=== PATIENT | female | born 1990 | race African-American/Black ===

== ENCOUNTER 2018-06-27 09:24 | Emergency (ER) | payer BC ==
--- NOTE | 2018-06-27 10:05 | EDM.PDOC ---
ED HPI GENERAL MEDICAL PROBLEM - General Chief Complaint: General Stated Complaint: NECK PAIN Time Seen by Provider: 06/27/18 10:01 Source of Information: Reports: Patient History Limitations: Reports: No Limitations - History of Present Illness INITIAL COMMENTS - FREE TEXT/NARRATIVE: HISTORY AND PHYSICAL: History of present illness: Patient is a 27-year-old female presents to the ED today with concern of neck spasm and dizziness. Patient states she is concerned because she did have a vaginal delivery 3 weeks ago and was told she had severe anemia. Patient states that she is concerned that dizziness is due to this. She describes the pain in her neck as more to the right and as a "spasm". She denies any injury to the neck or prior injury. She states that she felt like she slept on her neck wrong and woke up with the muscle tightening. Patient denies any fever, chills, headache, change in vision, syncope or near syncope. Denies any chest pain, shortness of breath or cough. Denies any abdominal pain, nausea, vomiting, diarrhea, constipation or dysuria. Has not noted any blood in urine or stool. Patient has been eating and drinking appropriately. Patient denies any other history than as stated above. Review of systems: As per history of present illness and below otherwise all systems reviewed and negative. Past medical history: As per history of present illness and as reviewed below otherwise noncontributory. Surgical history: As per history of present illness and as reviewed below otherwise noncontributory. Social history: See social history for further information Family history: As per history of present illness and as reviewed below otherwise noncontributory. Physical exam: General: Patient is alert, oriented, and in no acute distress. She is sitting comfortably on exam table. HEENT: Atraumatic, normocephalic, pupils equal and reactive bilaterally, negative for conjunctival pallor or scleral icterus, mucous membranes moist, TMs normal bilaterally, throat clear, neck supple, nontender, trachea midline. No drooling or trismus noted. No meningeal signs. No hot potato voice noted. Lungs: Clear to auscultation, breath sounds equal bilaterally, chest nontender. Heart: S1S2, regular rate and rhythm without overt murmur Abdomen: Soft, nondistended, nontender. Negative for masses or hepatosplenomegaly. Negative for costovertebral tenderness. Pelvis: Stable nontender. Genitourinary: Deferred. Rectal: Deferred. Skin: Intact, warm, dry. No lesions or rashes noted. Extremities/Musculoskeletal: Patient does have tenderness to palpation of the origin/insertion of the trapezius into the right aspect of the occipital bone. Othersie, atraumatic, negative for cords or calf pain. Neurovascular unremarkable. Neuro: Awake, alert, oriented. Cranial nerves II through XII unremarkable. Cerebellum unremarkable. Motor and sensory unremarkable throughout. Exam nonfocal. Notes: On exam, patient does have tenderness of the trapezius muscles insertion. Will do labs today. Supportive care measures were reviewed and discussed. Voices understanding and is agreeable to plan of care. Denies any further questions or concerns at this time. Diagnostics: CBC,CMP Therapeutics: Norflex, toradol Prescription: Flexeril, Diclofenac Impression: Muscle spasm, neck Anemia Plan: 1. Take medication as prescribed. You can alternate heat and ice 15 minutes on 20 minutes off for pain and discomfort. 2. Follow-up with her primary care provider as discussed. 3. Return to the ED as needed and as discussed. Definitive disposition and diagnosis as appropriate pending reevaluation and review of above. - Related Data Allergies Allergy/AdvReac Type Severity Reaction Status Date / Time No Known Allergies Allergy Verified 06/27/18 09:37 Home Meds: Home Meds Pnv No.122/Iron/Folic Acid [ Multi Tablet] 1 PO DAILY 02/25/18 [History] valACYclovir [Valtrex] 1 tab PO DAILY 02/25/18 [History] Cyclobenzaprine [Flexeril] 10 mg PO TID PRN #6 tab 06/27/18 [Rx] Diclofenac Sodium [Voltaren] 75 mg PO BIDMEALS PRN #10 tab.cr 06/27/18 [Rx] Past Medical History - Past Health History Medical/Surgical History: Denies Medical/Surgical History [employer] History: Reports: Social & Family History - Family History Family Medical History: Noncontributory - Caffeine Use Caffeine Use: Reports: Coffee ED ROS GENERAL - Review of Systems Review Of Systems: ROS reveals no pertinent complaints other than HPI. ED EXAM, GENERAL - Physical Exam Exam: See Below (see dictation) Course - Vital Signs Last Recorded V/S: Last Vital Signs Temp 97.4 F 06/27/18 09:35 Pulse 97 06/27/18 09:35 Resp 16 06/27/18 09:35 BP 118/63 06/27/18 09:35 Pulse Ox 97 06/27/18 09:35 - Orders/Labs/Meds Labs: Laboratory Tests 06/27/18 06/27/18 Range/Units 10:24 10:24 WBC 5.02 (4.0-11.0) K/uL RBC 4.66 (4.30-5.90) M/uL Hgb 11.1 L (12.0-16.0) g/dL Hct 33.3 L (36.0-46.0) % MCV 71.5 L (80.0-98.0) fL MCH 23.8 L (27.0-32.0) pg MCHC 33.3 (31.0-37.0) g/dL RDW Std Deviation 42.6 (28.0-62.0) fl RDW Coeff of Wu 16 H (11.0-15.0) % Plt Count 308 (150-400) K/uL MPV 8.80 (7.40-12.00) fL Neut % (Auto) 61.3 (48.0-80.0) % Lymph % (Auto) 27.5 (16.0-40.0) % [place] % (Auto) 9.0 (0.0-15.0) % Eos % (Auto) 1.8 (0.0-7.0) % Baso % (Auto) 0.4 (0.0-1.5) % Neut # (Auto) 3.1 (1.4-5.7) K/uL Lymph # (Auto) 1.4 (0.6-2.4) K/uL [place] # (Auto) 0.5 (0.0-0.8) K/uL Eos # (Auto) 0.1 (0.0-0.7) K/uL Baso # (Auto) 0.0 (0.0-0.1) K/uL Nucleated RBC % 0.0 /100WBC Nucleated RBCs # 0 K/uL Sodium 142 (136-145) mmol/L Potassium 4.1 (3.5-5.1) mmol/L Chloride 106 (98-107) mmol/L Carbon Dioxide 26.3 (21.0-32.0) mmol/L BUN 17 (7.0-18.0) mg/dL Creatinine 1.1 H (0.6-1.0) mg/dL Est Cr Clr Drug Dosing 80.99 mL/min Estimated GFR (MDRD) > 60.0 ml/min Glucose 94 (74-106) mg/dL Calcium 8.7 (8.5-10.1) mg/dL Total Bilirubin 0.4 (0.2-1.0) mg/dL AST 26 (15-37) IU/L ALT 38 (14-63) IU/L Alkaline Phosphatase 79 (46-116) U/L Total Protein 8.1 (6.4-8.2) g/dL Albumin 3.5 (3.4-5.0) g/dL Globulin 4.6 H (2.6-4.0) g/dL Albumin/Globulin Ratio 0.8 L (0.9-1.6) Meds: Medications Discontinued Medications Generic Name Dose Route Start Last Admin Trade Name Freq PRN Reason Stop Dose Admin Ketorolac Tromethamine 60 mg 06/27/18 10:11 06/27/18 10:18 Toradol IM 06/27/18 10:12 60 mg ONETIME ONE Administration Orphenadrine Citrate 60 mg 06/27/18 10:11 06/27/18 10:18 Norflex IM 06/27/18 10:12 60 mg NOW STA Administration Departure - Departure Time of Disposition: 11:22 Disposition: Home, Self-Care 01 Clinical Impression: Muscle spasm - Discharge Information Instructions: Muscle Cramps and Spasms, [id number] Referrals: PCP,None [Primary Care Provider] - Forms: ED Department Discharge Additional Instructions: The following information is given to patients seen in the emergency department who are being discharged to home. This information is to outline your options for follow-up care. We provide all patients seen in our emergency department with a follow-up referral. The need for follow-up, as well as the timing and circumstances, are variable depending upon the specifics of your emergency department visit. If you don't have a primary care physician on staff, we will provide you with a referral. We always advise you to contact your personal physician following an emergency department visit to inform them of the circumstance of the visit and for follow-up with them and/or the need for any referrals to a consulting specialist. The emergency department will also refer you to a specialist when appropriate. This referral assures that you have the opportunity for follow-up care with a specialist. All of these measure are taken in an effort to provide you with optimal care, which includes your follow-up. Under all circumstances we always encourage you to contact your private physician who remains a resource for coordinating your care. When calling for follow-up care, please make the office aware that this follow-up is from your recent emergency room visit. If for any reason you are refused follow-up, please contact the [facility] Emergency Department at and asked to speak to the emergency department charge nurse. [facility] [address] [place] [address] [id number] [address] [address] 1. Take medication as prescribed. You can alternate heat and ice 15 minutes on 20 minutes off for pain and discomfort. 2. Follow-up with her primary care provider as discussed. 3. Return to the ED as needed and as discussed.
[2018-06-27] MEDS ORDERED: Ketorolac 60 MG/2 ML SDV IM ONE (10:11)
[2018-06-27 11:12] LABS: CHLORIDE,CL 106 mmol/L (98-107); SODIUM,NA 142 mmol/L (136-145)
== END 2018-06-27 11:47 | disposition home or self-care (01) ==
LOC: MW.ED 09:24
DX: M62.838 Other muscle spasm (principal); D64.9 Anemia, unspecified; Z79.899 Other long term (current) drug therapy
CPT/HCPCS: 36415; 80053; 85025; 96372; 99283; J1885; J2360

== ENCOUNTER 2019-01-03 01:46 | Emergency (ER) | payer BC ==
[2019-01-03] MEDS ORDERED: Pantoprazole 40 MG Vial IVPUSH ONE (02:06)
[2019-01-03] MEDS ORDERED: Sodium Chloride 0.9% 10 ML Syringe FLUSH PRN (02:06)
[2019-01-03] MEDS ORDERED: Morphine 2 MG/ML Syringe IVPUSH ONE (02:06)
[2019-01-03] MEDS ORDERED: Sodium Chloride 0.9% 2.5 ML Syringe FLUSH PRN (02:06)
[2019-01-03] MEDS ORDERED: Ondansetron 4 MG/2 ML SDV IVPUSH ONE ×2 (02:06→02:52)
[2019-01-03] MEDS ORDERED: Sodium Chloride 0.9% 1,000 ML IV ONE (02:06)
--- NOTE | 2019-01-03 02:10 | EDM.PDOC ---
ED HPI GENERAL MEDICAL PROBLEM - General Chief Complaint: Abdominal Pain Stated Complaint: ABD PAIN Time Seen by Provider: 01/03/19 01:59 - History of Present Illness INITIAL COMMENTS - FREE TEXT/NARRATIVE: HISTORY AND PHYSICAL: History of present illness: The patient is a 28-year-old female with no diagnosed GI problems no abdominal surgical history and who presents with a proximally 2 hours of epigastric abdominal pain associated with nausea and one episode of vomiting. The patient' s that she had a normal day without any systemic issues and has no history of food intolerance and this evening she ate pizza for dinner and then approximately 2 hours ago had onset of upper abdominal pain in the midline radiating to her back associated with the nausea and vomiting. She had a bowel movement which was not diarrhea and she has not had black or bloody stools. Patient also ate lasagna with cheese today for lunch. She does take Tums or over -the-counter antacids sporadically and she said that she took them more with her last . She currently has less nausea after the one episode of vomiting and she said she mostly vomited up her dinner and did not notice anything else such as black or blood. The patient did not take any medications prior to coming here and has no flank pain no urinary complaints and is on the Depo shot. She has no chest pain or shortness of breath and no upper respiratory symptoms fevers or chills. Says she has eaten pizza in the past and not had issues and she has no fatty food intolerance that she can recall Review of systems: As per history of present illness and below otherwise all systems reviewed and negative. Past medical history: As per history of present illness and as reviewed below otherwise noncontributory. Surgical history: As per history of present illness and as reviewed below otherwise noncontributory. Social history: No reported history of drug or alcohol abuse. Family history: As per history of present illness and as reviewed below otherwise noncontributory. Physical exam: General: Well-developed well-nourished female who is mildly overweight and nontoxic. Vital Signs are noted by me HEENT: Atraumatic, normocephalic, pupils reactive, negative for conjunctival pallor or scleral icterus, mucous membranes moist, throat clear, neck supple, nontender, trachea midline. Lungs: Clear to auscultation, breath sounds equal bilaterally, chest nontender. Heart: S1S2, regular rate and rhythm no overt murmurs Abdomen: Soft, nondistended, there is mild right upper quadrant epigastric tenderness on palpation without rebound or guarding and bowel sounds are hypoactive Negative for masses or hepatosplenomegaly. Negative for costovertebral tenderness. Pelvis: Stable nontender. Genitourinary: Deferred. Rectal: Deferred. Extremities: Atraumatic, negative for cords or calf pain. Neurovascular unremarkable. Neuro: Awake, alert, oriented. Cranial nerves II through XII unremarkable. Cerebellum unremarkable. Motor and sensory unremarkable throughout. Exam nonfocal. Diagnostics: EKG CBC CMP amylase lipase UA UCG CT scan of the abdomen and pelvis Therapeutics: IV fluids Zofran Protonix morphine Toradol Hyoscyamine Patient had vomiting of bilious fluid here in The ED. Patient and family at bedside are aware of all testing results including full panel of laboratory tests which are within normal limits and a CAT scan which reveals no acute abnormalities. In light of the patient's history of eating pizza for dinner and lasagna with cheese for lunch and her complaints of a spasm -like pain in her upper abdomen I have advised her that she needs to get follow- up for more GI workup including possible endoscopy and HIDA scan to further evaluate the gallbladder. I will give her Zofran ODT for home as well as Levsin to help with this discomfort and some tramadol for breakthrough pain. The patient does not have a regular provider but family sees Dr. Garrett and her aunt at bedside said that she does have biliary dyskinesia and that the patient' s symptoms sound very similar and Dr. Garrett has done a workup on her so she is aware of the plan. Impression: Upper abdominal pain with vomiting Definitive disposition and diagnosis as appropriate pending reevaluation and review of above. upper abdomen Pain Score (Numeric/FACES): 8 - Related Data Allergies Allergy/AdvReac Type Severity Reaction Status Date / Time No Known Allergies Allergy Verified 01/03/19 02:01 Home Meds: Home Meds . [No Known Home Meds] 01/03/19 [History] Past Medical History - Past Health History Medical/Surgical History: Denies Medical/Surgical History [employer] History: Reports: Endocrine/Metabolic History: Reports: Obesity/BMI 30+ Social & Family History - Family History Family Medical History: Noncontributory - Tobacco Use Smoking Status *Q: Never Smoker - Caffeine Use Caffeine Use: Reports: Coffee - Recreational Drug Use Recreational Drug Use: No ED ROS GENERAL - Review of Systems Review Of Systems: ROS reveals no pertinent complaints other than HPI. ED EXAM, GENERAL - Physical Exam Exam: See Below (See dictation) Course - Vital Signs Last Recorded V/S: Last Vital Signs Temp 35.5 C 01/03/19 02:00 Pulse 68 01/03/19 03:32 Resp 17 01/03/19 03:32 BP 136/78 01/03/19 03:32 Pulse Ox 100 01/03/19 03:32 - Orders/Labs/Meds Orders: Active Orders 24 hr Category Date Time Status EKG Documentation Completion [RC] STAT Care 01/03/19 02:06 Active Sodium Chloride 0.9% [Saline Flush] Med 01/03/19 02:06 Active 10 ml FLUSH ASDIRECTED PRN Sodium Chloride 0.9% [Saline Flush] Med 01/03/19 02:06 Active 2.5 ml FLUSH ASDIRECTED PRN Saline Lock Insert [OM.PC] Stat Oth 01/03/19 02:06 Ordered Medication Orders Sodium Chloride (Saline Flush) 10 ml FLUSH ASDIRECTED PRN PRN Reason: Keep Vein Open Sodium Chloride (Saline Flush) 2.5 ml FLUSH ASDIRECTED PRN PRN Reason: Keep Vein Open Labs: Laboratory Tests 01/03/19 01/03/19 01/03/19 Range/Units 02:17 02:17 02:23 WBC 10.62 (4.0-11.0) K/uL RBC 4.78 (4.30-5.90) M/uL Hgb 12.4 (12.0-16.0) g/dL Hct 37.0 (36.0-46.0) % MCV 77.4 L (80.0-98.0) fL MCH 25.9 L (27.0-32.0) pg MCHC 33.5 (31.0-37.0) g/dL RDW Std Deviation 41.5 (28.0-62.0) fl RDW Coeff of Wu 15 (11.0-15.0) % Plt Count 295 (150-400) K/uL MPV 9.50 (7.40-12.00) fL Neut % (Auto) 58.7 (48.0-80.0) % Lymph % (Auto) 31.7 (16.0-40.0) % [place] % (Auto) 8.5 (0.0-15.0) % Eos % (Auto) 0.9 (0.0-7.0) % Baso % (Auto) 0.2 (0.0-1.5) % Neut # (Auto) 6.2 H (1.4-5.7) K/uL Lymph # (Auto) 3.4 H (0.6-2.4) K/uL [place] # (Auto) 0.9 H (0.0-0.8) K/uL Eos # (Auto) 0.1 (0.0-0.7) K/uL Baso # (Auto) 0.0 (0.0-0.1) K/uL Nucleated RBC % 0.0 /100WBC Nucleated RBCs # 0 K/uL Sodium (136-145) mmol/L Potassium (3.5-5.1) mmol/L Chloride (98-107) mmol/L Carbon Dioxide (21.0-32.0) mmol/L BUN (7.0-18.0) mg/dL Creatinine (0.6-1.0) mg/dL Est Cr Clr Drug Dosing Estimated GFR (MDRD) ml/min Glucose (74-106) mg/dL Calcium (8.5-10.1) mg/dL Total Bilirubin (0.2-1.0) mg/dL AST (15-37) IU/L ALT (14-63) IU/L Alkaline Phosphatase (46-116) U/L Total Protein (6.4-8.2) g/dL Albumin (3.4-5.0) g/dL Globulin (2.6-4.0) g/dL Albumin/Globulin Ratio (0.9-1.6) Amylase (25-115) U/L Lipase (73-393) U/L Urine Color YELLOW Urine Appearance CLEAR Urine pH 5.5 (5.0-8.0) Ur Specific [place] 1.020 (1.001-1.035) Urine Protein NEGATIVE (NEGATIVE) mg/dL Urine Glucose (UA) NEGATIVE (NEGATIVE) mg/dL Urine Ketones NEGATIVE (NEGATIVE) mg/dL Urine Occult Blood SMALL H (NEGATIVE) Urine Nitrite NEGATIVE (NEGATIVE) Urine Bilirubin NEGATIVE (NEGATIVE) Urine Urobilinogen 0.2 (<2.0) EU/dL Ur Leukocyte Esterase NEGATIVE (NEGATIVE) Urine RBC 0-1 (0-2/HPF) Urine WBC 0-1 (0-5/HPF) Ur Epithelial Cells OCCASIONAL (NONE-FEW) Urine Bacteria FEW (NEGATIVE) Urine Mucus LIGHT (NONE-MOD) Urine HCG, Qual NEGATIVE (NEGATIVE) 01/03/19 Range/Units 02:23 WBC (4.0-11.0) K/uL RBC (4.30-5.90) M/uL Hgb (12.0-16.0) g/dL Hct (36.0-46.0) % MCV (80.0-98.0) fL MCH (27.0-32.0) pg MCHC (31.0-37.0) g/dL RDW Std Deviation (28.0-62.0) fl RDW Coeff of Wu (11.0-15.0) % Plt Count (150-400) K/uL MPV (7.40-12.00) fL Neut % (Auto) (48.0-80.0) % Lymph % (Auto) (16.0-40.0) % [place] % (Auto) (0.0-15.0) % Eos % (Auto) (0.0-7.0) % Baso % (Auto) (0.0-1.5) % Neut # (Auto) (1.4-5.7) K/uL Lymph # (Auto) (0.6-2.4) K/uL [place] # (Auto) (0.0-0.8) K/uL Eos # (Auto) (0.0-0.7) K/uL Baso # (Auto) (0.0-0.1) K/uL Nucleated RBC % /100WBC Nucleated RBCs # K/uL Sodium 141 (136-145) mmol/L Potassium 3.9 (3.5-5.1) mmol/L Chloride 103 (98-107) mmol/L Carbon Dioxide 26.4 (21.0-32.0) mmol/L BUN 14 (7.0-18.0) mg/dL Creatinine 1.1 H (0.6-1.0) mg/dL Est Cr Clr Drug Dosing TNP Estimated GFR (MDRD) > 60.0 ml/min Glucose 141 H (74-106) mg/dL Calcium 9.0 (8.5-10.1) mg/dL Total Bilirubin 0.4 (0.2-1.0) mg/dL AST 15 (15-37) IU/L ALT 26 (14-63) IU/L Alkaline Phosphatase 86 (46-116) U/L Total Protein 7.6 (6.4-8.2) g/dL Albumin 3.5 (3.4-5.0) g/dL Globulin 4.1 H (2.6-4.0) g/dL Albumin/Globulin Ratio 0.9 (0.9-1.6) Amylase 67 (25-115) U/L Lipase 117 (73-393) U/L Urine Color Urine Appearance Urine pH (5.0-8.0) Ur Specific [place] (1.001-1.035) Urine Protein (NEGATIVE) mg/dL Urine Glucose (UA) (NEGATIVE) mg/dL Urine Ketones (NEGATIVE) mg/dL Urine Occult Blood (NEGATIVE) Urine Nitrite (NEGATIVE) Urine Bilirubin (NEGATIVE) Urine Urobilinogen (<2.0) EU/dL Ur Leukocyte Esterase (NEGATIVE) Urine RBC (0-2/HPF) Urine WBC (0-5/HPF) Ur Epithelial Cells (NONE-FEW) Urine Bacteria (NEGATIVE) Urine Mucus (NONE-MOD) Urine HCG, Qual (NEGATIVE) Meds: Medications Generic Name Dose Route Start Last Admin Trade Name Freq PRN Reason Stop Dose Admin Sodium Chloride 10 ml 01/03/19 02:06 Saline Flush FLUSH ASDIRECTED PRN Keep Vein Open Sodium Chloride 2.5 ml 01/03/19 02:06 Saline Flush FLUSH ASDIRECTED PRN Keep Vein Open Discontinued Medications Generic Name Dose Route Start Last Admin Trade Name Freq PRN Reason Stop Dose Admin Hyoscyamine 0.125 mg 01/03/19 03:41 01/03/19 03:52 Hyomax-Sl SL 01/03/19 03:42 0.125 mg ONETIME ONE Administration Sodium Chloride 1,000 mls @ 999 mls/hr 01/03/19 02:06 01/03/19 02:27 Normal Saline IV 01/03/19 03:06 999 mls/hr STAT ONE Administration Sodium Chloride Confirm 01/03/19 02:14 01/03/19 02:34 Normal Saline Administered 01/03/19 02:15 Not Given Dose 20 mls @ as directed .ROUTE .STK-MED ONE Iopamidol 100 ml 01/03/19 03:13 01/03/19 03:16 Isovue Multipack-370 (76%) IVPUSH 01/03/19 03:14 100 ml ONETIME ONE Administration Ketorolac Tromethamine 30 mg 01/03/19 03:32 01/03/19 03:38 Toradol IVPUSH 01/03/19 03:33 30 mg ONETIME ONE Administration Morphine Sulfate 2 mg 01/03/19 02:06 01/03/19 02:29 Morphine IVPUSH 01/03/19 02:07 2 mg ONETIME ONE Administration Ondansetron HCl 4 mg 01/03/19 02:06 01/03/19 02:28 Zofran IVPUSH 01/03/19 02:07 4 mg ONETIME ONE Administration Ondansetron HCl 4 mg 01/03/19 02:52 01/03/19 03:24 Zofran IVPUSH 01/03/19 02:53 4 mg ONETIME ONE Administration Pantoprazole Sodium 80 mg 01/03/19 02:06 01/03/19 02:31 Protonix Iv IVPUSH 01/03/19 02:07 80 mg .BOLUS ONE Administration Sodium Chloride 20 ml 01/03/19 02:20 01/03/19 02:31 Normal Saline FLUSH 01/03/19 02:21 20 ml ONETIME ONE Administration Departure - Departure Time of Disposition: 04:00 Disposition: Home, Self-Care 01 Condition: Fair Clinical Impression: Abdominal pain Qualifiers: Abdominal location: epigastric Qualified Code(s): R10.13 - Epigastric pain Vomiting Qualifiers: Vomiting type: bilious vomiting Nausea presence: with nausea Qualified Code(s) : R11.14 - Bilious vomiting - Discharge Information Referrals: PCP,None [Primary Care Provider] - Forms: ED Department Discharge Additional Instructions: The following information is given to patients seen in the emergency department who are being discharged to home. This information is to outline your options for follow-up care. We provide all patients seen in our emergency department with a follow-up referral. The need for follow-up, as well as the timing and circumstances, are variable depending upon the specifics of your emergency department visit. If you don't have a primary care physician on staff, we will provide you with a referral. We always advise you to contact your personal physician following an emergency department visit to inform them of the circumstance of the visit and for follow-up with them and/or the need for any referrals to a consulting specialist. The emergency department will also refer you to a specialist when appropriate. This referral assures that you have the opportunity for followup care with a specialist. All of these measure are taken in an effort to provide you with optimal care, which includes your followup. Under all circumstances we always encourage you to contact your private physician who remains a resource for coordinating your care. When calling for followup care, please make the office aware that this follow-up is from your recent emergency room visit. If for any reason you are refused follow-up, please contact the [facility] emergency department at and ask to speak to the emergency department charge nurse. [facility] Primary care- Internal Medicine and Family [address] [address] Please connect with one of our local clinic providers for further care and reevaluation of these symptoms. Please eat a low-fat diet and use prescribed medications as needed for nausea vomiting and pain. Push hydration and avoid caffeinated products. Return to ER as needed and as discussed - My Orders Last 24 Hours: My Active Orders 01/03/19 02:06 EKG Documentation Completion [RC] STAT Sodium Chloride 0.9% [Saline Flush] 10 ml FLUSH ASDIRECTED PRN Sodium Chloride 0.9% [Saline Flush] 2.5 ml FLUSH ASDIRECTED PRN Saline Lock Insert [OM.PC] Stat - Assessment/Plan Last 24 Hours: My Active Orders 01/03/19 02:06 EKG Documentation Completion [RC] STAT Sodium Chloride 0.9% [Saline Flush] 10 ml FLUSH ASDIRECTED PRN Sodium Chloride 0.9% [Saline Flush] 2.5 ml FLUSH ASDIRECTED PRN Saline Lock Insert [OM.PC] Stat
[2019-01-03] MEDS ORDERED: Sodium Chloride 0.9% 20 ML ONE (02:14)
[2019-01-03] MEDS ORDERED: Sodium Chloride 0.9% 20 ML SDV FLUSH ONE (02:20)
[2019-01-03 02:51] LABS: BLOOD UREA NITROGEN,BUN 14 mg/dL (7.0-18.0); CARBON DIOXIDE,CO2 26.4 mmol/L (21.0-32.0); CHLORIDE,CL 103 mmol/L (98-107); GLUCOSE RANDOM 141 mg/dL (74-106); LIPASE 117 U/L (73-393); POTASSIUM,K 3.9 mmol/L (3.5-5.1); SODIUM,NA 141 mmol/L (136-145)
[2019-01-03] MEDS ORDERED: Iopamidol 755 MG/ML 200 ML Multipack Bottle IVPUSH ONE (03:13)
[2019-01-03] MEDS ORDERED: Ketorolac 30 MG/ML SDV IVPUSH ONE (03:32)
--- NOTE | 2019-01-03 03:37 | CT ---
INDICATION: Lower abdominal pain, nausea TECHNIQUE: CT abdomen and pelvis acquired with IV contrast. 100 cc Isovue 370 COMPARISON: None FINDINGS: Lower chest: Unremarkable. Liver: Unremarkable. Spleen: Unremarkable. Pancreas: Unremarkable. Gallbladder and bile ducts: Unremarkable. Kidneys: Unremarkable. Adrenal glands: Unremarkable. GI tract: Unremarkable. Appendix is normal. Vascular structures: Unremarkable. Lymph nodes: Unremarkable. Miscellaneous: Unremarkable. No free air or significant free fluid. Pelvic Organs: Diffuse variable thickening. Bones: Unremarkable for age. IMPRESSION: No definitive findings to explain the patient`s lower abdominal pain. Diffuse bladder wall thickening although the urinary bladder is not well distended. Correlate with cystitis clinically. Dictated by Marshall Ospina MD @ 01/03/2019 3:35:47 AM Please note that all CT scans at this facility use dose modulation, iterative reconstruction, and/or weight-based dosing when appropriate to reduce radiation dose to as low as reasonably achievable. Dictated by: Marshall Ospina MD @ 01/03/2019 03:35:53 (Electronically Signed)
[2019-01-03] MEDS ORDERED: Hyoscyamine 0.125 MG Tab.SL SL ONE (03:41)
== END 2019-01-03 04:14 | disposition home or self-care (01) ==
LOC: MW.ED 01:46
DX: R10.13 Epigastric pain (principal); R10.10 Upper abdominal pain, unspecified; R11.14 Bilious vomiting; E66.9 Obesity, unspecified; Z68.33 Body mass index [BMI] 33.0-33.9, adult
CPT/HCPCS: 36415; 74177; 80053; 81001; 81025; 82150; 83690; 85025; 93005; 96361; 96374; 96375; 96376; 99284; A9270; C9113; J1885; J2270; J2405; J7040; Q9967

== ENCOUNTER 2024-01-12 13:18 | Emergency (ER) | payer SELFPAY | END 2024-01-12 14:01 | disposition left against medical advice (07) | LOC: MW.ED 13:18 | DX: Z53.21 Procedure and treatment not carried out due to patient leaving prior to being seen by health care provider (principal) | CPT/HCPCS: 93005 ==